=== PATIENT | female | born 1975 | race African-American/Black ===

== ENCOUNTER 2024-12-22 13:41 | Emergency (ER) | payer MEDICAID ==
[~2024-12-22] VITALS: Ht 162.5 cm; Wt 99.8 kg
[2024-12-22] MEDS ORDERED: ERYTHROMYCIN OPH1 GM OPH (14:18)
== END 2024-12-22 14:22 | disposition home or self-care (01) ==
LOC: ED 13:41
DX: H10.9 Unspecified conjunctivitis (principal); M79.7 Fibromyalgia; Z88.0 Allergy status to penicillin; Z91.041 Radiographic dye allergy status; Z91.040 Latex allergy status

== ENCOUNTER 2025-01-12 08:29 | Emergency (ER) | payer MEDICAID ==
[~2025-01-12] VITALS: Ht 162.5 cm; Wt 95.3 kg
[~2025-01-12 08:29] MED LIST: ERYTHROMYCIN OPH1 GM OPH
[2025-01-12] MEDS ORDERED: LIDOCAINE 1 EA PATCH T ONE (09:10)
[2025-01-12] MEDS ORDERED: LIDOCAINE 4% PATCH T ONE (09:10)
[2025-01-12] MEDS ORDERED: LORazepam 1 MG TAB PO ONE (10:55)
[2025-01-12] MEDS ORDERED: GADOTERATE MEGLUMINE 10 MMOL/20 ML VIAL IV ONE (13:20)
[2025-01-12] MEDS ORDERED: diphenhydrAMINE hydrochloride 25 MG CAP PO ONE (15:15)
== END 2025-01-12 15:27 | disposition home or self-care (01) ==
LOC: ED 08:29
DX: M54.50 Low back pain, unspecified (principal); J06.9 Acute upper respiratory infection, unspecified; Z88.0 Allergy status to penicillin; Z88.8 Allergy status to other drugs, medicaments and biological substances; Z91.040 Latex allergy status